=== PATIENT | male | born 1995 | race African-American/Black ===

== ENCOUNTER 2018-01-15 13:22 | Emergency (ER) | payer SELFPAY ==
[2018-01-15] MEDS ORDERED: Ketorolac Tromethamine 30 MG/ML VIAL ONE (13:57)
== END 2018-01-15 14:24 | disposition home or self-care (01) ==
LOC: ERS 13:22
DX: M54.5 Low back pain (principal); J45.909 Unspecified asthma, uncomplicated
CPT/HCPCS: 96372; J1885

== ENCOUNTER 2018-06-21 10:00 | Emergency (ER) | payer SELFPAY ==
[2018-06-21 11:58] LABS: Bilirubin Negative (Negative); Blood, Urine Negative (Negative); Glucose, Urine (Dipstick) Negative (Negative); Leukocyte Negative (Negative); Nitrite Negative (Negative); Protein, Urine (Dipstick) Negative (Neg-Trace); Specific Gravity, Urine 1.025 (1.005-1.030)
[2018-06-21 11:59] LABS: Clarity Clear (Clear)
[2018-06-21] MEDS ORDERED: Azithromycin 250 MG TAB ONE (12:25)
[2018-06-21] MEDS ORDERED: cefTRIAXone\\ROCEPHIN 250 MG VIAL ONE (12:25)
[2018-06-21] MEDS ORDERED: Lidocaine 1% PF 5 ML VIAL ONE (12:25)
== END 2018-06-21 13:02 | disposition home or self-care (01) ==
LOC: ERS 10:00
DX: Z20.2 Contact with and (suspected) exposure to infections with a predominantly sexual mode of transmission (principal); J45.909 Unspecified asthma, uncomplicated
CPT/HCPCS: 81003; 87491; 87591; 96372; J0696; J2001

== ENCOUNTER 2018-06-27 17:14 | Emergency (ER) | payer SELFPAY ==
--- NOTE | 2018-06-27 20:06 | RAD ---
CHEST TWO VIEWS: History: Cough. Bronchitis. Comparison: 12-29-16 FINDINGS: Normal cardiac silhouette. The pulmonary vessels and hilum are normal. Costophrenic angles are clear. Lung volumes are diminished, likely due to a poor inspiratory effort. No consolidation or mass. No p neumothorax or osseous abnormalities. IMPRESSION: No acute cardiopulmonary process. POS: PPP
== END 2018-06-27 19:56 | disposition home or self-care (01) ==
LOC: ERS 17:14
DX: J06.9 Acute upper respiratory infection, unspecified (principal); J45.909 Unspecified asthma, uncomplicated
CPT/HCPCS: 71046; 87804

== ENCOUNTER 2018-10-15 12:03 | Emergency (ER) | payer SELFPAY ==
[2018-10-15] MEDS ORDERED: HYDROcodone/Acetaminophen 10/325 mg Tablet ONE (12:52)
[2018-10-15] MEDS ORDERED: Ibuprofen 800 MG TAB ONE (12:52)
[2018-10-15] MEDS ORDERED: predniSONE 20 MG TAB ONE (12:52)
== END 2018-10-15 13:04 | disposition home or self-care (01) ==
LOC: ERS 12:03
DX: J20.9 Acute bronchitis, unspecified (principal); J45.909 Unspecified asthma, uncomplicated
CPT/HCPCS: 87081; 87430; 87804; 99283; J7506

== ENCOUNTER 2018-11-29 15:08 | Emergency (ER) | payer BC, SELFPAY | END 2018-11-29 15:45 | disposition home or self-care (01) | LOC: ERS 15:08 | DX: Z00.00 Encounter for general adult medical examination without abnormal findings (principal); J45.909 Unspecified asthma, uncomplicated | CPT/HCPCS: 99281 ==

== ENCOUNTER 2020-04-07 14:15 | Emergency (ER) | payer BC, OTHER ==
[2020-04-07] MEDS ORDERED: Ketorolac Tromethamine 30 MG/ML VIAL ONE (23:51)
[2020-04-08 16:09] LABS: SARS-CoV-2 MS2 Positive; SARS-CoV-2 N Gene Negative; SARS-CoV-2 S Gene Negative; SARS-CoV-2 orf1ab Negative
== END 2020-04-07 15:42 | disposition home or self-care (01) ==
LOC: ERS 14:15
DX: J02.9 Acute pharyngitis, unspecified (principal); Z20.828 Contact with and (suspected) exposure to other viral communicable diseases; J45.909 Unspecified asthma, uncomplicated
CPT/HCPCS: 87635; 99283; J1885; J3370; U0003

== ENCOUNTER 2021-02-25 09:50 | Emergency (ER) | payer SELFPAY ==
[2021-02-25] MEDS ORDERED: Ketorolac Tromethamine 30 MG/ML VIAL ONE (12:13)
== END 2021-02-25 12:46 | disposition home or self-care (01) ==
LOC: ERS 09:50
DX: J06.9 Acute upper respiratory infection, unspecified (principal); R07.9 Chest pain, unspecified; J45.909 Unspecified asthma, uncomplicated
CPT/HCPCS: 96372; 99283; J1885

== ENCOUNTER 2021-06-27 22:18 | Emergency (ER) | payer SELFPAY ==
[2021-06-27 23:31] LABS: Bacteria/HPF None Seen HPF (None Seen); Bilirubin Negative (Negative); Blood, Urine 3+ (Negative); Clarity Extra Turbid (Clear); Glucose, Urine (Dipstick) Normal (Negative); Ketone, Urine Trace mg/dL (Negative); Leukocyte 25 Leu/uL (Negative); Nitrite Negative (Negative); Protein, Urine (Dipstick) 30 mg/dL (Neg-Trace); RBC/HPF Greater than 50 HPF (0-3); Specific Gravity, Urine 1.028 (1.002-1.036); Squamous Epithelial None Seen HPF (0-3); Urobilinogen Normal mg/dL (Less than 2)
[2021-06-30 21:24] LABS: Chlam.trachomatis by PCR,Urine Inconclusive (NotDetected)
== END 2021-06-28 00:33 | disposition home or self-care (01) ==
LOC: ERS 22:18
DX: N39.0 Urinary tract infection, site not specified (principal); J45.909 Unspecified asthma, uncomplicated
CPT/HCPCS: 81003; 81015; 87086; 87491; 87591; 99283

== ENCOUNTER 2021-09-15 16:40 | Emergency (ER) | payer SELFPAY ==
[~2021-09-15 16:40] MED LIST: Iopamidol-370 76% 500 ML 1 ML ONE
[2021-09-15] MEDS ORDERED: Albuterol 200 PUFF (6.7GM INHALER) ONE (18:39)
[2021-09-15] MEDS ORDERED: Ketorolac Tromethamine 30 MG/ML VIAL ONE (19:23)
[2021-09-15] MEDS ORDERED: Acetaminophen 500 MG TAB ONE (19:23)
[2021-09-15 19:28] LABS: #Eosinphils 0.4 thou/uL (0.0-0.7); #Lymphocytes 2.6 thou/uL (1.20-3.40); #Monocytes 0.8 thou/uL (0.11-0.59); #Neutrophils 4.9 thou/uL (1.40-6.50); %Basophils 0.1 % (0.0-1.0); %Eosinophils 4.2 % (0.0-10.0); %Lymphocytes 29.7 % (21.0-51.0); %Monocytes 9.4 % (0.0-10.0); %Neutrophils 56.6 % (42.0-75.0); Hemoglobin 14.9 g/dL (14.0-18.0); Mean Corpuscular HGB CONC 33.6 g/dL (32.0-36.0); Mean Corpuscular Volume 80.3 fL (78.0-98.0); Mean Platelet Volume 6.9 fL (7.4-10.4); Platelet Count 281 thou/uL (130-400); RBC Distribution Width 13.1 % (11.5-14.5); Red Blood Cell (RBC) Count 5.52 mill/uL (4.70-6.10); White Blood Cell (WBC) Count 8.7 thou/uL (4.8-10.8)
[2021-09-15 19:51] LABS: ALT (SGPT) 22 U/L (8-55); AST (SGOT) 16 U/L (5-34); Albumin 4.1 g/dL (3.5-5.0); Alkaline Phosphatase 88 U/L (40-110); Anion Gap 12 mmol/L (10-20); BUN (Urea Nitrogen) 15 mg/dL (8.9-20.6); Bilirubin, Total 0.4 mg/dL (0.2-1.2); Calc. Creatinine Clearance 0 mL/min (70-130); Calcium 9.6 mg/dL (7.8-10.44); Carbon Dioxide 27 mmol/L (22-29); Chloride 103 mmol/L (98-107); Globulin 3.5 g/dL (2.4-3.5); Glucose 96 mg/dL (70-105); Potassium 4.4 mmol/L (3.5-5.1); Protein, Total 7.6 g/dL (6.0-8.3); Sodium 138 mmol/L (136-145)
[2021-09-15 20:39] LABS: SARS-CoV-2 NAA Rapid Test Not Detected (NotDetected)
== END 2021-09-15 22:38 | disposition home or self-care (01) ==
LOC: ERS 16:40
DX: J18.0 Bronchopneumonia, unspecified organism (principal); Z20.822 Contact with and (suspected) exposure to COVID-19; J45.909 Unspecified asthma, uncomplicated
CPT/HCPCS: 0240U; 36415; 71046; 71275; 80053; 84484; 85025; 85379; 93005; 96374; J1885; Q9967

== ENCOUNTER 2021-10-12 11:08 | Emergency (ER) | payer BC, SELFPAY ==
[2021-10-12] MEDS ORDERED: Dexamethasone 10 MG/ML VIAL ONE (12:19)
[2021-10-12 12:44] LABS: #Eosinphils 0.1 thou/uL (0.0-0.7); #Lymphocytes 0.9 thou/uL (1.20-3.40); #Monocytes 0.8 thou/uL (0.11-0.59); #Neutrophils 5.1 thou/uL (1.40-6.50); %Basophils 0.5 % (0.0-1.0); %Eosinophils 1.8 % (0.0-10.0); %Lymphocytes 12.3 % (21.0-51.0); %Neutrophils 73.3 % (42.0-75.0); Hemoglobin 14.4 g/dL (14.0-18.0); Mean Corpuscular Hemoglobin 26.9 pg (27.0-31.0); Mean Corpuscular Volume 79.1 fL (78.0-98.0); Mean Platelet Volume 7.4 fL (7.4-10.4); Platelet Count 215 thou/uL (130-400); RBC Distribution Width 13.5 % (11.5-14.5); Red Blood Cell (RBC) Count 5.34 mill/uL (4.70-6.10)
[2021-10-12 13:23] LABS: ALT (SGPT) 29 U/L (8-55); AST (SGOT) 16 U/L (5-34); Alkaline Phosphatase 77 U/L (40-110); Anion Gap 11 mmol/L (10-20); BUN (Urea Nitrogen) 14 mg/dL (8.9-20.6); Bilirubin, Total 0.4 mg/dL (0.2-1.2); CK (CPK) 154 U/L (30-200); Calc. Creatinine Clearance 0 mL/min (70-130); Calcium 9.7 mg/dL (7.8-10.44); Carbon Dioxide 26 mmol/L (22-29); Chloride 101 mmol/L (98-107); Globulin 3.4 g/dL (2.4-3.5); Glucose 89 mg/dL (70-105); Lipase 18 U/L (8-78); Potassium 4.2 mmol/L (3.5-5.1); Protein, Total 7.4 g/dL (6.0-8.3); Sodium 134 mmol/L (136-145)
[2021-10-12] MEDS ORDERED: Iopamidol-370 76% 500 ML 1 ML ONE (15:25)
== END 2021-10-12 14:47 | disposition home or self-care (01) ==
LOC: ERS 11:08
DX: U07.1 COVID-19 (principal); J45.909 Unspecified asthma, uncomplicated
CPT/HCPCS: 36415; 71045; 71275; 80053; 82550; 83690; 83880; 84484; 85025; 85379; 87804; 93005; 96374; J1100; Q9967

== ENCOUNTER 2022-06-28 16:34 | Emergency (ER) | payer BC ==
[2022-06-28] MEDS ORDERED: Ketorolac Tromethamine 30 MG/ML VIAL ONE (18:42)
[2022-06-28] MEDS ORDERED: Cyclobenzaprine 10 MG TAB ONE ×2 (18:42→18:44)
== END 2022-06-28 19:17 | disposition home or self-care (01) ==
LOC: ERS 16:34
DX: M54.50 Low back pain, unspecified (principal); X50.0XXA Overexertion from strenuous movement or load, initial encounter
CPT/HCPCS: 96372; 99283; J1885

== ENCOUNTER 2022-06-30 19:24 | Emergency (ER) | payer BC | END 2022-06-30 20:46 | disposition left against medical advice (07) | LOC: ERS 19:24 | DX: Z53.21 Procedure and treatment not carried out due to patient leaving prior to being seen by health care provider (principal) ==

== ENCOUNTER 2022-07-01 11:44 | Emergency (ER) | payer BC ==
[2022-07-01] MEDS ORDERED: Ketorolac Tromethamine 30 MG/ML VIAL ONE (13:33)
[2022-07-01 13:39] LABS: #Eosinphils 0.1 thou/uL (0.0-0.7); #Lymphocytes 2.3 thou/uL (1.20-3.40); #Monocytes 0.8 thou/uL (0.11-0.59); %Basophils 0.2 % (0.0-1.0); %Eosinophils 1.3 % (0.0-10.0); %Lymphocytes 22.7 % (21.0-51.0); %Monocytes 7.6 % (0.0-10.0); %Neutrophils 68.3 % (42.0-75.0); Hemoglobin 15.5 g/dL (14.0-18.0); Mean Corpuscular HGB CONC 32.6 g/dL (32.0-36.0); Mean Corpuscular Hemoglobin 26.3 pg (27.0-31.0); Mean Corpuscular Volume 80.7 fL (78.0-98.0); Mean Platelet Volume 7.4 fL (7.4-10.4); Platelet Count 267 thou/uL (130-400); RBC Distribution Width 13.7 % (11.5-14.5); Red Blood Cell (RBC) Count 5.89 mill/uL (4.70-6.10); White Blood Cell (WBC) Count 10.3 thou/uL (4.8-10.8)
[2022-07-01 13:58] LABS: ALT (SGPT) 24 U/L (8-55); AST (SGOT) 12 U/L (5-34); Albumin 4.1 g/dL (3.5-5.0); Alkaline Phosphatase 74 U/L (40-110); Anion Gap 12 mmol/L (10-20); BUN (Urea Nitrogen) 14 mg/dL (8.9-20.6); Bilirubin, Total 0.4 mg/dL (0.2-1.2); Calc. Creatinine Clearance 0 mL/min (70-130); Calcium 9.6 mg/dL (7.8-10.44); Carbon Dioxide 29 mmol/L (22-29); Chloride 104 mmol/L (98-107); Estimated GFR 100; Globulin 2.9 g/dL (2.4-3.5); Glucose 88 mg/dL (70-105); Potassium 4.4 mmol/L (3.5-5.1); Sodium 141 mmol/L (136-145)
[2022-07-01] MEDS ORDERED: Fentanyl 100 MCG/2 ML VIAL ONE (16:06)
[2022-07-01] MEDS ORDERED: Lidocaine 2% PF 5 ML VIAL ONE ×2 (17:37→17:38)
== END 2022-07-01 18:51 | disposition home or self-care (01) ==
LOC: ERS 11:44
DX: K61.1 Rectal abscess (principal)
CPT/HCPCS: 36415; 46040; 80053; 83605; 85025; 87040; 96374; 96375; J1885; J2001; J3010

== ENCOUNTER 2023-02-09 22:11 | Emergency (ER) | payer BC, SELFPAY ==
[2023-02-09] MEDS ORDERED: Morphine 4 MG/ML VIAL ONE (22:49)
[2023-02-09] MEDS ORDERED: HYDROcodone/Acetaminophen 10/325 mg Tablet ONE (23:33)
== END 2023-02-09 23:57 | disposition home or self-care (01) ==
LOC: ERS 22:11
DX: S83.91XA Sprain of unspecified site of right knee, initial encounter (principal); J45.909 Unspecified asthma, uncomplicated; X50.1XXA Overexertion from prolonged static or awkward postures, initial encounter
CPT/HCPCS: 96372; J2270